=== PATIENT | female | born 1985 | race Caucasian/White ===

== ENCOUNTER → 2017-10-28 | Outpatient (CLI) | payer OTHER ==
[~2017-10-28] MED LIST: CEPH500 PO; CLIN150 PO; CLIN300 PO; FLUO20; HYDACE5 PO; METO10 PO; MULVITMINE PO; MUPI2TC TOP; OXYACE5T PO; PROACE100 PO; PROM25 PO; RXOXYACE PO; RXPROACE PO; SULTRIDS PO; TRAM50 PO
== END ==
LOC: LAB 17:54 → LAB SHORT 17:54
DX: B37.9 Candidiasis, unspecified (principal)
CPT/HCPCS: 87070

== ENCOUNTER 2019-04-03 22:17 | Emergency (ER) | payer OTHER ==
[~2019-04-03] VITALS: Ht 162.6 cm; Wt 81.7 kg
[2019-04-03] MEDS ORDERED: TYLENOL AND MOTRIN (22:26)
[2019-04-03 23:02] LABS: Source, Urine Clean Catch
[2019-04-03 23:05] LABS: Bilirubin, Urine Neg (Neg); Blood, Urine 5+ (Neg); Glucose Qualitative, Urine Neg (Neg); Ketones, Urine Neg (Neg); Leukocyte Esterase, Urine 3+ (Neg); Nitrite, Urine Neg (Neg); Protein, Urine 2+ (Neg); Urobilinogen, Urine NORM (Normal); pH, Urine 6.5 (5.0-8.0)
[2019-04-03 23:05] LABS: BASOPHILS ABSOLUTE AUTO 0.03 K/mm3 (0.00-0.23); BASOPHILS PERCENT AUTO 0 % (0-2); EOSINOPHILS ABSOLUTE AUTO 0.25 K/mm3 (0.00-0.68); EOSINOPHILS PERCENT AUTO 2 % (0-6); Hematocrit 42.5 % (33.0-51.0); Hemoglobin 13.8 g/dL (11.5-16.0); IMMATURE GRAN ABSOLUTE AUTO 0.04 K/mm3 (0.00-0.10); IMMATURE GRAN PERCENT AUTO 0 % (0-1); LYMPHOCYTES ABSOLUTE AUTO 2.18 K/mm3 (0.84-5.20); LYMPHOCYTES PERCENT AUTO 20 % (21-46); MONOCYTES ABSOLUTE AUTO 0.36 K/mm3 (0.16-1.47); MONOCYTES PERCENT AUTO 3 % (4-13); Mean Corpuscular HGB 29.3 pg (26.0-34.0); Mean Corpuscular HGB Conc 32.5 g/dL (31.5-36.5); Mean Corpuscular Volume 90 fL (80-100); Mean Platelet Volume 9.6 fL (9.1-12.4); NEUTROPHILS ABSOLUTE AUTO 7.95 K/mm3 (1.96-9.15); NEUTROPHILS PERCENT AUTO 74 % (41-73); Platelet Count 276 K/mm3 (150-400); RDW Coefficient Variation 12.9 % (11.7-14.2); RDW Standard Deviation 42.4 fL (35.1-46.3); Red Blood Cell Count 4.71 M/mm3 (3.80-5.20); White Blood Cell Count 10.81 K/mm3 (4.00-11.30)
[2019-04-03 23:06] LABS: Appearance, Urine Hazy (Clear); Color, Urine Yellow (P-Yellow)
[2019-04-03 23:11] LABS: White Blood Cells, Urine TNTC /hpf (0-5)
[2019-04-03 23:12] LABS: Bacteria Many /hpf; Squamous Epithelial Cells Few /hpf (Few)
[2019-04-03 23:23] LABS: Alanine Aminotransfer (ALT/SGP 27 U/L (12-78); Albumin, Blood 3.8 g/dL (3.4-5.0); Alk Phos 91 U/L (50-136); Anion Gap 6 mmol/L (6-16); Aspartate Aminotrans (AST/SGOT 20 U/L (12-37); Bilirubin, Total 0.2 mg/dL (0.1-1.0); Blood Urea Nitrogen 13 mg/dL (8-24); Bun/Creatinine Ratio 14.9 (12.0-20.0); CO2, Blood 28 mmol/L (21-32); Calcium, Blood 9.5 mg/dL (8.5-10.1); Chloride, Blood 105 mmol/L (98-108); Creatinine, Blood 0.87 mg/dL (0.40-1.00); Globulin, Blood 3.9 g/dL (2.2-4.0); Glomerular Filtration Rate >60 (60-); Glucose, Blood 91 mg/dL (70-99); Potassium, Blood 3.7 mmol/L (3.5-5.5); Sodium, Blood 139 mmol/L (136-145); Total Protein, Blood 7.7 g/dL (6.4-8.2)
[2019-04-04] MEDS ORDERED: Pyridium100 MG PO (00:36)
[2019-04-04] MEDS ORDERED: CEPH500 PO (00:36)
[2019-04-04] MEDS ORDERED: ONDA4ODT MM (00:49)
== END 2019-04-04 01:15 | disposition home or self-care (01) ==
LOC: ER 22:17
PROVIDERS: Physician Assistant
DX: N12 Tubulo-interstitial nephritis, not specified as acute or chronic (principal); F32.9 Major depressive disorder, single episode, unspecified; Z88.2 Allergy status to sulfonamides; Z87.891 Personal history of nicotine dependence
CPT/HCPCS: 36415; 74177; 80053; 81001; 81025; 83690; 85025; 87077; 87086; 87186; 96361; 96374; 99284-25; A9270; A9270-GY; J0696; J2405; J7030; Q9967

== ENCOUNTER → 2019-04-13 | Outpatient (CLI) | payer OTHER ==
[~2019-04-13] MED LIST changes: +ONDA4ODT MM; +Pyridium100 MG PO; +TYLENOL AND MOTRIN
[2019-04-13 19:23] LABS: Bilirubin, Urine Neg (Neg); Blood, Urine 1+ (Neg); Glucose Qualitative, Urine Neg (Neg); Ketones, Urine Neg (Neg); Leukocyte Esterase, Urine 2+ (Neg); Nitrite, Urine Neg (Neg); Protein, Urine Neg (Neg); Urobilinogen, Urine NORM (Normal)
[2019-04-13 19:48] LABS: Appearance, Urine Clear (Clear); Color, Urine Yellow (P-Yellow)
[2019-04-13 19:49] LABS: Bacteria Mod /hpf; Red Blood Cells, Urine 0-2 /hpf (0-2); Squamous Epithelial Cells Few /hpf (Few)
== END ==
LOC: LAB 18:45 → LAB SHORT 18:45
PROVIDERS: Family Medicine
DX: N12 Tubulo-interstitial nephritis, not specified as acute or chronic (principal)
CPT/HCPCS: 81001; 87086

== ENCOUNTER → 2019-04-21 | Outpatient (CLI) | payer OTHER | END | disposition home or self-care (01) | LOC: LAB SRC 07:45 → LAB SHORT 07:45 → LAB 07:45 | DX: R31.9 Hematuria, unspecified (principal) | CPT/HCPCS: 87086 ==

== ENCOUNTER → 2019-05-30 | Outpatient (CLI) | payer OTHER | LOC: LAB SHORT 07:43 → PLD 07:43 | DX: L60.2 Onychogryphosis (principal); B35.1 Tinea unguium | CPT/HCPCS: 88305; 88312 ==

== ENCOUNTER → 2020-06-20 | Outpatient (CLI) | payer OTHER | END | disposition home or self-care (01) | LOC: PLD 17:57 → LAB SHORT 17:57 | DX: R35.0 Frequency of micturition (principal) | CPT/HCPCS: 87086 ==

== ENCOUNTER → 2021-10-24 | Outpatient (CLI) | payer OTHER | END | disposition home or self-care (01) | LOC: LAB 16:00 → LAB SHORT 16:00 | DX: J02.9 Acute pharyngitis, unspecified (principal) | CPT/HCPCS: 87081 ==

== ENCOUNTER → 2022-04-02 | Outpatient (CLI) | payer OTHER | END | disposition home or self-care (01) | LOC: LAB SHORT 08:02 → LAB 08:02 | DX: L60.2 Onychogryphosis (principal); B35.1 Tinea unguium | CPT/HCPCS: 88305; 88312 ==

== ENCOUNTER → 2022-11-28 | Outpatient (CLI) | payer OTHER ==
[~2022-11-28] MED LIST changes: +ATOR10 PO; +Cleocin HCl150 MG PO; +FLUTICASONE PRO16 GM; +SYNTHROID88 MCG PO
[2022-11-29 12:09] LABS: Candida species (DNA Probe) Negative (NEGATIVE); G. vaginalis (DNA Probe) Positive (NEGATIVE); T. vaginalis (DNA Probe) Negative (NEGATIVE)
[2022-12-03 14:09] LABS: HPV 16 Negative (Negative); HPV 18 Negative (Negative); HPV OTHER HR TYPES Negative (Negative)
== END | disposition home or self-care (01) ==
LOC: LAB 17:40 → LAB SHORT 17:40
PROVIDERS: Nurse Practitioner Family
DX: Z12.4 Encounter for screening for malignant neoplasm of cervix (principal); N89.8 Other specified noninflammatory disorders of vagina
CPT/HCPCS: 87480; 87510; 87624; 87660; 88175

== ENCOUNTER 2022-12-03 20:53 | Emergency (ER) | payer OTHER ==
[~2022-12-03] VITALS: Ht 165.1 cm; Wt 108.0 kg
[~2022-12-03 20:53] MED LIST changes: -ATOR10 PO; -Cleocin HCl150 MG PO; -FLUTICASONE PRO16 GM; -SYNTHROID88 MCG PO
[2022-12-03 20:57] VITALS: BP 146/100
[2022-12-03] MEDS ORDERED: SYNTHROID88 MCG PO (21:48)
[2022-12-03] MEDS ORDERED: FLUTICASONE PRO16 GM (21:48)
[2022-12-03] MEDS ORDERED: ATOR10 PO (21:49)
[2022-12-03] MEDS ORDERED: Cleocin HCl150 MG PO (21:59)
== END 2022-12-03 22:10 | disposition home or self-care (01) ==
LOC: ER 20:53
DX: L02.412 Cutaneous abscess of left axilla (principal); F32.A Depression, unspecified; Z79.899 Other long term (current) drug therapy; Z79.82 Long term (current) use of aspirin; Z87.891 Personal history of nicotine dependence
CPT/HCPCS: 99283; A9270

== ENCOUNTER 2023-04-14 19:42 | Emergency (ER) | payer OTHER ==
[~2023-04-14] VITALS: Ht 165.1 cm; Wt 106.6 kg
[~2023-04-14 19:42] MED LIST changes: +ATOR10 PO; +Cleocin HCl150 MG PO; +FLUTICASONE PRO16 GM; +Ibuprofen600 MG PO; +SYNTHROID88 MCG PO
[2023-04-14 20:10] VITALS: BP 134/89
[2023-04-14 21:17] LABS: Influenza A, PCR NEGATIVE (NEGATIVE); Influenza B, PCR NEGATIVE (NEGATIVE); Resp Syncytial Virus, PCR NEGATIVE (NEGATIVE); SARS-Cov-2 (COVID-19) PCR, MMC NEGATIVE (NEGATIVE)
[2023-04-14] MEDS ORDERED: EUTHYROX50 MC1 PO (21:37)
== END 2023-04-14 22:28 | disposition home or self-care (01) ==
LOC: ER 19:42
PROVIDERS: Student in an Organized Health Care Education/Training Program
DX: J44.89 Other specified chronic obstructive pulmonary disease (principal); Z86.16 Personal history of COVID-19; Z87.891 Personal history of nicotine dependence; Z88.2 Allergy status to sulfonamides
CPT/HCPCS: 0241U; 99283

== ENCOUNTER 2023-09-14 19:09 | Emergency (ER) | payer OTHER ==
[~2023-09-14] VITALS: Ht 167.6 cm; Wt 97.5 kg
[~2023-09-14 19:09] MED LIST changes: +EUTHYROX50 MC1 PO
[2023-09-14 19:34] VITALS: BP 139/79
[2023-09-14] MEDS ORDERED: Ketorolac Tromethamine 15mg Vial IM ONE (19:35)
== END 2023-09-14 19:56 | disposition home or self-care (01) ==
LOC: ER 19:09
DX: M25.511 Pain in right shoulder (principal); G89.29 Other chronic pain; Z88.2 Allergy status to sulfonamides; Z79.890 Hormone replacement therapy; Z87.891 Personal history of nicotine dependence
CPT/HCPCS: 96372; 99282-25; J1885

== ENCOUNTER 2023-10-04 21:40 | Emergency (ER) | payer OTHER ==
[~2023-10-04] VITALS: Ht 165.1 cm; Wt 106.6 kg
[2023-10-04 22:01] VITALS: BP 156/65
[2023-10-04] MEDS ORDERED: Ketorolac Tromethamine 15mg Vial IM ONE (23:25)
[2023-10-04] MEDS ORDERED: Lidocaine 4% 1 Patch TOP ONE (23:25)
[2023-10-04] MEDS ORDERED: ASPERFLEX1 EACH TOP (23:27)
[2023-10-04] MEDS ORDERED: Robaxin750 MG PO (23:27)
== END 2023-10-04 23:37 | disposition home or self-care (01) ==
LOC: ER 21:40
DX: M62.838 Other muscle spasm (principal); E03.9 Hypothyroidism, unspecified; Z87.891 Personal history of nicotine dependence; Z79.899 Other long term (current) drug therapy; Z88.2 Allergy status to sulfonamides
CPT/HCPCS: A9270; J1885

== ENCOUNTER → 2025-02-24 | Outpatient (CLI) | payer OTHER ==
[~2025-02-24] MED LIST changes: +ASPERFLEX1 EACH TOP; +CYCL10 PO; +Robaxin750 MG PO
[2025-02-24 20:22] LABS: Bacterial Vaginosis PCR Negative (NEGATIVE); Candida Group, PCR NOT DETECTED (NOT DETECT); Candida glabrata-krusei, PCR NOT DETECTED (NOT DETECT)
== END ==
LOC: LAB 15:14 → LAB SHORT 15:14
PROVIDERS: Advanced Practice Midwife
DX: N76.0 Acute vaginitis (principal)
CPT/HCPCS: 81515